=== PATIENT | male | born 1955 | race Caucasian/White ===

== ENCOUNTER 2023-10-25 16:46 | Emergency (ER) | payer MEDICARE ==
[~2023-10-25] VITALS: Ht 175.3 cm; Wt 75.0 kg
[2023-10-25 17:13] VITALS: BP 146/64; PULSE 76; RESP 16; TEMP 99; O2SAT 100
[2023-10-25] MEDS ORDERED: DIAZ-570 MT (19:43)
== END 2023-10-25 20:50 | disposition home or self-care (01) ==
LOC: ER 16:46
DX: G47.00 Insomnia, unspecified (principal)
CPT/HCPCS: 99281

== ENCOUNTER 2023-12-12 12:43 | Emergency (ER) | payer MEDICARE ==
[~2023-12-12] VITALS: Ht 172.7 cm; Wt 85.0 kg
[~2023-12-12 12:43] MED LIST: DIAZ-570 MT
[2023-12-12 12:49] VITALS: BP 178/70; PULSE 90; RESP 16; O2SAT 97
[2023-12-12] MEDS ORDERED: METOCLOPRAMIDE HCL 10MG/2ML VIAL IV ONE (13:15)
[2023-12-12] MEDS ORDERED: ACETAMINOPHEN 325MG TABLET PO ONE (13:15)
[2023-12-12 14:53] LABS: BASOPHILS % 0.4 % (0.0-2.0); EOSINOPHILS % 0.5 % (0.0-5.0); HEMATOCRIT. 39.4 % (42.0-52.0); HEMOGLOBIN. 13.1 g/dL (14.0-18.0); LYMPHOCYTES % 17.7 % (20.0-50.0); MEAN CORPUSCULAR HEMOGLOBIN 31.5 pg (28.0-32.0); MEAN CORPUSCULAR HGB CONC 33.1 g/dL (31.0-37.0); MEAN PLATELET VOLUME 7.4 fl (7.4-10.4); MONOCYTES % 7.4 % (2.0-8.0); PLATELET 256 x1000/uL (130-400); RED BLOOD CELL COUNT 4.15 mill/uL (4.7-6.1); RED CELL DISTRIBUTION WIDTH 13.9 % (11.6-14.6); WHITE BLOOD COUNT 11.9 x1000/uL (4.5-11.0)
[2023-12-12 15:01] LABS: PROTHROMBIN TIME 10.8 sec (9.6-11.0)
[2023-12-12 15:08] LABS: ALANINE AMINOTRANSFERASE 26 IU/L (10-49); ALBUMIN 4.3 g/dL (3.2-4.8); ASPARTATE AMINOTRANSFERASE 27 IU/L (<34); BILIRUBIN TOTAL 0.6 mg/dL (0.1-1.0); CALCIUM 9.3 mg/dL (8.7-10.4); CARBON DIOXIDE 20 mEq/L (21-32); CHLORIDE 104 mEq/L (98-107); CREATININE 0.8 mg/dL (0.6-1.3); GLUCOSE 98 mg/dL (70-105); POTASSIUM 4.2 mEq/L (3.5-5.1); PROTEIN TOTAL 7.4 g/dL (6.0-8.3); SODIUM 135 mEq/L (136-145); TROPONIN I HIGH SENSITIVITY 4 ng/L (3.0-53); UREA NITROGEN BLOOD 15 mg/dL (9-23)
[2023-12-12 20:27] VITALS: TEMP 98.1
[2023-12-12] MEDS: ACETAMINOPHEN 325MG TABLET PO NR (20:27)
[2023-12-12] MEDS: SODIUM CHLORIDE 0.9% 1,000 ML IV ONE (20:27)
[2023-12-12] MEDS: METOCLOPRAMIDE HCL 10MG/2ML VIAL IV NR (20:27)
== END 2023-12-12 20:24 | disposition home or self-care (01) ==
LOC: ER 12:43
DX: R41.0 Disorientation, unspecified (principal); R42 Dizziness and giddiness; R04.2 Hemoptysis; F19.90 Other psychoactive substance use, unspecified, uncomplicated; E78.00 Pure hypercholesterolemia, unspecified
CPT/HCPCS: 99291; 70450; 80053; 83690; 85025; 85379; 85610; 84484; 36415; 71045; 93005; J7030